=== PATIENT | female | born 1990 | race Native Hawaiian/Other Pacific Islander ===

== ENCOUNTER 2019-04-24 10:13 | Outpatient (CLI) | payer OTHER ==
[2019-04-24 21:39] LABS: TRICHOMONAS VAGINALIS DNA NEGATIVE (NEGATIVE)
[2019-04-25 12:02] LABS: HEPATITIS C ANTIBODY NON-REACTIVE (NON-REACTIVE)
[2019-04-25 13:48] LABS: HIV AG/AB 4TH GEN NON-REACTIVE (NON-REACTIVE)
== END 2019-04-24 23:59 | disposition home or self-care (01) ==
LOC: LAB.WCP 10:13
PROVIDERS: ATTEND Nurse Practitioner Family
DX: Z11.3 Encounter for screening for infections with a predominantly sexual mode of transmission (principal)
CPT/HCPCS: 36415; 81599; 86592; 86803; 87389; 87491; 87591; 87661

== ENCOUNTER 2019-09-17 09:30 | Outpatient (CLI) | payer OTHER | END 2019-09-17 23:59 | disposition home or self-care (01) | LOC: COV 09:30 | PROVIDERS: ATTEND Family Medicine | DX: Z20.828 Contact with and (suspected) exposure to other viral communicable diseases (principal) ==

== ENCOUNTER 2020-05-15 14:08 | Emergency (ER) | payer OTHER ==
[2020-05-15] MEDS ORDERED: cefTRIAXone 500 MG VIAL IM STA (14:40)
[2020-05-15] MEDS ORDERED: AZITHROMYCIN 250 MG TABLET PO STA (14:40)
[2020-05-15] MEDS ORDERED: LIDOCAINE 1% 2 ML VIAL MC ONE (14:40)
[2020-05-15] MEDS ORDERED: metroNIDAZOLE 250 MG TABLET PO STA (14:41)
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
[2020-05-15 15:38] VITALS: BP 126/81
[2020-05-15] MEDS ORDERED: metroNIDAZOLE 250 MG TABLET PO ONE (16:00)
[2020-05-15 18:49] LABS: BACTERIAL VAGINOSIS DNA NEGATIVE (NEGATIVE); CANDIDA GLABRATA DNA NEGATIVE (NEGATIVE); CANDIDA GROUP DNA POSITIVE (NEGATIVE); CANDIDA KRUSEI DNA NEGATIVE (NEGATIVE); TRICHOMONAS VAGINALIS DNA NEGATIVE (NEGATIVE)
--- NOTE | 2020-05-15 19:00 | ED Physician Documentation ---
ED Addendum - Addendum Addendum: 05/15/20 18:59 Vaginosis panel positive for Krupa. I called the patient to discuss. Electronically sent a prescription for fluconazole 150 mg x 1 to [facility] at her request.
[2020-05-15 21:19] LABS: CHLAMYDIA TRACHOMATIS DNA NEGATIVE (NEGATIVE); NEISSERIA GONORRHOEAE DNA NEGATIVE (NEGATIVE); TRICHOMONAS VAGINALIS DNA NEGATIVE (NEGATIVE)
== END 2020-05-15 15:38 | disposition home or self-care (01) ==
LOC: ED 14:08
DX: T76.21XA Adult sexual abuse, suspected, initial encounter (principal); B37.9 Candidiasis, unspecified
CPT/HCPCS: 87481; 87491; 87591; 87661; 87801; 96372; 99283; A9270

== ENCOUNTER 2021-03-20 12:50 | Outpatient (CLI) | payer OTHER ==
--- NOTE | 2021-03-20 13:51 | Ultrasound Report ---
PROCEDURE: Pelvic w/Transvaginal INDICATIONS: IUD REMOVAL TECHNIQUE: Real-time scanning was performed of the pelvic organs, with image documentation. Additional endovagi nal scanning was necessary due to incomplete visualization of the adnexal and endometrial structures by transabdominal scanning. COMPARISON: None. FINDINGS: No pathologic free abdominal or pelvic fluid. Uterus: Uterus is borderline enlarged measuring 9.4 x 3.6 x 5.4 cm. Volume measures 95 cc. IUD is in expected position. Areas of echogenicity are noted along the margin of the IUD. The endometrium hillary ures 3 mm in combined thickness. Ovaries: Right ovary measures 2.4 x 2.2 x 1.8 cm, volume 4.7 cc. Left ovary measures 2.7 x 1.7 x 1.5 cm, volume 3.6 cc. IMPRESSION: IUD is in expected position. Areas of adjacent echogenicity are present which may represent the strin g. Reviewed by: Negar Fuchs MD on 03/20/2021 1:50 PM PST Approved by: Negar Fuchs MD on 03/20/2021 1:50 PM PST Station ID: [id number]
== END 2021-03-20 12:51 | disposition home or self-care (01) ==
LOC: DI 12:50
PROVIDERS: ATTEND Family Medicine
DX: Z30.431 Encounter for routine checking of intrauterine contraceptive device (principal)